=== PATIENT | female | born 1985 | race Caucasian/White ===

== ENCOUNTER 2019-07-09 06:10 | Day surgery (SDC) | payer BC ==
[2019-07-09 07:19] LABS: HCG,QUAL RESULT NEGATIVE (NEGATIVE)
[2019-07-09] MEDS ORDERED: fentaNYL CITRATE/PF 100 MCG/2 ML AMP ONE (07:57)
[2019-07-09] MEDS ORDERED: BENZOCAINE 20% 0.5mL UD SPRAY MM ONE (07:58)
[2019-07-09] MEDS ORDERED: MIDAZOLAM HCL 5 MG/5 ML VIAL ONE (07:59)
[2019-07-09] MEDS: MIDAZOLAM HCL 5 MG/5 ML VIAL ONE ×3 (08:32→08:38)
[2019-07-09 10:22] VITALS: BP_SYST 138
== END 2019-07-09 11:10 | disposition home or self-care (01) ==
LOC: SDS 06:10
PROVIDERS: ATTEND Surgery
DX: R10.9 Unspecified abdominal pain (principal); K29.70 Gastritis, unspecified, without bleeding; Z98.84 Bariatric surgery status
CPT/HCPCS: 36415; 43239; 84703; 87081; 88305; 88313; 99152; J2250; J3010; J7030

== ENCOUNTER 2019-08-28 11:13 | Day surgery (SDC) | payer BC, OTHER ==
[2019-08-22 10:47] LABS: BASOPHILS % (AUTO) 0.5 % (0.0-2.0); EOSINOPHILS # (AUTO) 0.1 K/uL (0.0-0.4); EOSINOPHILS % (AUTO) 1.5 % (0.0-4.0); HEMATOCRIT 39.1 % (36-48); HEMOGLOBIN 13.1 g/dL (12.0-16.0); LYMPHOCYTES # (AUTO) 2.1 K/uL (1.0-5.5); LYMPHOCYTES % (AUTO) 27.6 % (20.5-51.5); MEAN CORPUSCULAR HEMOGLOBIN 30 pg (27-31); MEAN CORPUSCULAR HGB CONC 34 % (32-36); MEAN CORPUSCULAR VOLUME 88 fL (79.0-98.0); MONOCYTES # (AUTO) 0.4 K/uL (0.0-1.0); MONOCYTES % (AUTO) 4.7 % (1.7-9.3); NEUTROPHILS % (AUTO) 65.7 % (40.0-70.0); PLATELET COUNT (AUTO) 324 K/uL (130-430); RED BLOOD CELL COUNT(AUTO) 4.45 MIL/uL (4.2-6.2); RED CELL DISTRIBUTION WIDTH 13.9 % (9.0-15.0); WHITE BLOOD COUNT (AUTO) 7.6 K/uL (4.8-10.8)
[2019-08-22 11:06] LABS: CREATININE 0.58 mg/dL (0.55-1.30); POTASSIUM 3.7 mmol/L (3.5-5.1); TOTAL BILIRUBIN 0.5 mg/dL (0.0-1.0)
[~2019-08-28] VITALS: Ht 172.7 cm; Wt 99.8 kg
[~2019-08-28 11:13] MED LIST: CEFAZOLIN SOD 1 GM in D5W 50 ML IV ONE
[2019-08-28 11:32] LABS: HCG,QUAL RESULT NEGATIVE (NEGATIVE)
[2019-08-28] MEDS ORDERED: BUPIVACAINE LIPOSOME/PF 266 MG/20 ML VIAL INFIL ONE (13:08)
[2019-08-28] MEDS ORDERED: IOHEXOL 50 ML IV ONE (13:15)
[2019-08-28] MEDS ORDERED: LR 1,000 ML IV SCH (13:33)
[2019-08-28] MEDS ORDERED: MORPHINE 4 MG/ML INJ. SYRINGE IVP PRN ×3 (13:45→16:00)
[2019-08-28] MEDS ORDERED: METOCLOPRAMIDE HCL 10 MG/2 ML VIAL IVP PRN (13:45)
[2019-08-28] MEDS ORDERED: GLYCOPYRROLATE 0.2 MG/ML VIAL ONE (14:30)
[2019-08-28] MEDS ORDERED: NEOSTIGMINE METHYLSULFATE 1 MG/ML, 10 ML VIAL ONE (14:30)
[2019-08-28] MEDS ORDERED: SEVOFLURANE 15 MIN GAS INH ONE (14:30)
[2019-08-28] MEDS ORDERED: ONDANSETRON HCL 4 MG/2 ML VIAL IVP PRN (14:30)
[2019-08-28] MEDS ORDERED: fentaNYL CITRATE 250 MCG/5 ML AMP ONE (14:30)
[2019-08-28] MEDS ORDERED: ACETAMINOPHEN/CODEINE 300 MG-30 MG TABLET PO PRN (14:30)
[2019-08-28] MEDS ORDERED: ONDANSETRON HCL 4 MG/2 ML VIAL ONE (14:30)
[2019-08-28] MEDS ORDERED: PHENYLEPHRINE HCL 10 MG/ML VIAL (NEOSYNEPHRINE) ONE (14:30)
[2019-08-28] MEDS ORDERED: PROPOFOL 200MG/ 20ML VIAL (DIPRIVAN) IV ONE (14:30)
[2019-08-28] MEDS ORDERED: MIDAZOLAM HCL 5 MG/ML VIAL (VERSED) IV ONE (14:30)
[2019-08-28] MEDS ORDERED: LR 1,000 ML IV.SOLN IV ONE (14:30)
[2019-08-28] MEDS ORDERED: ROCURONIUM BROMIDE 10 MG/ML (ZEMURON) ONE (14:30)
[2019-08-28] MEDS ORDERED: NS IRRIG SOLN 1000 ML IR ONE (14:30)
[2019-08-28] MEDS: MORPHINE 4 MG/ML INJ. SYRINGE IVP PRN ×2 (14:55→15:10)
[2019-08-28] MEDS ORDERED: MORPHINE 4 MG/ML INJ. SYRINGE ONE (15:22)
[2019-08-28] MEDS ORDERED: HYDROmorphone 2 MG/ML VIAL IVP ONE (15:30)
[2019-08-28 16:24] VITALS: BP_SYST 153
[2019-08-28] MEDS ORDERED: ACETAMINOPHEN/CODEINE 300 MG-30 MG TABLET ONE (16:55)
[2019-08-28] MEDS ORDERED: DIPHENHYDRAMINE HCL 25 MG CAPSULE PO ONE (17:45)
== END 2019-08-28 19:00 | disposition home or self-care (01) ==
LOC: SDS 11:13 → SMU 11:13 → SDS 19:00
PROVIDERS: ATTEND Surgery
DX: K80.10 Calculus of gallbladder with chronic cholecystitis without obstruction (principal); K82.8 Other specified diseases of gallbladder; E66.01 Morbid (severe) obesity due to excess calories; Z88.8 Allergy status to other drugs, medicaments and biological substances
CPT/HCPCS: 36415; 47563; 71046; 74300; 80053; 84703 ×2; 85025; 88304; 93005; C1727; C9290; J0690; J2270; J7060; J7120; Q0163; Q9967; J2250; J2370; J2405; J2704; J2710; J3010; J3490